=== PATIENT | male | born 1995 | race African-American/Black ===

== ENCOUNTER 2016-11-15 14:20 | Emergency (ER) | payer SELFPAY ==
[~2016-11-15] VITALS: Ht 193 cm; Wt 75.0 kg
[2016-11-15 14:22] VITALS: BP 144/74; PULSE 81; RESP 16; TEMP 97.9; O2SAT 99
[2016-11-15] MEDS ORDERED: MOTR200T4 PO (14:36)
--- NOTE | 2016-11-15 14:36 | PD ---
HPI . Sore throat for 1 day Chief Complaint: ENT Complaint Time Seen by Provider: 14:35 Travel History International Travel<30 days: No Contact w/Intl Traveler<30days: No Traveled to known affect area: No History of Present Illness HPI 21-year-old male with no medical history who recently had tonsillitis on October 27 and treated with amoxicillin here with complaints of recurrent infection. Patient tells me that he developed a sore throat yesterday and he wanted to come in before it got worse. He says he was told last time he was seen that he would need to have tonsillectomy, but has not been able to follow-up with primary care provider or ear nose and throat. He denies any fever or chills. He denies any difficulty swallowing or drooling. He denies any changes in his voice. He has no other complaints. PFSH Past Medical History Medical History: Denies Significant Hx Social History Alcohol Use: No Tobacco Use: No Substance Use: No Allergies-Medications (Allergen,Severity, Reaction): Coded Allergies: No Known Allergies (Unverified , 11/15/16) Reported Meds & Prescriptions Reported Meds & Active Scripts Active Prednisone 50 Mg Tab 50 Mg PO DAILY Augmentin (Amoxicillin-Clavulanate) 875-125 mg Tab 875 Mg PO BID not for use in CrCl <30 ml/min. Reported Motrin Ib (Ibuprofen) 200 Mg Tab 200 Mg PO Q4H PRN Review of Systems General / Constitutional: No: Fever Eyes: No: Visual changes HENT: Positive: Sore Throat, No: Headaches Cardiovascular: No: Chest Pain or Discomfort Respiratory: No: Shortness of Breath Gastrointestinal: No: Abdominal Pain Genitourinary: No: Dysuria Musculoskeletal: No: Pain Skin: No Rash Neurologic: No: Weakness Psychiatric: No: Depression Endocrine: No: Polydipsia Hematologic/Lymphatic: No: Easy Bruising Physical Exam Narrative GENERAL: AAO x 3, no acute distress, Well-nourished, well-developed patient. SKIN: Warm and dry. No visible rashes or bruising. HEAD: Normocephalic and atraumatic. EYES: No scleral icterus. No injection or drainage. EOM intact, PERRLA ENT: No nasal drainage noted. Mucous membranes pink. Airway patent. Mild to moderate posterior pharynx erythema, edema greater on the left than right. No definitive abscess or exudates. Uvula is midline. NECK: Supple, trachea midline. No JVD. Positive cervical chain lymphadenopathy CARDIOVASCULAR: Regular rate and rhythm without murmurs, gallops, or rubs. RESPIRATORY: Breath sounds equal bilaterally. No accessory muscle use. No rhonchi or rales. GASTROINTESTINAL: Abdomen soft, non-tender, nondistended. EXTREMITIES: No cyanosis or edema. BACK: Nontender without obvious deformity. No CVA tenderness. PSYCH: AAO x 3, normal affect. Data Data Last Documented VS Vital Signs Date Time Temp Pulse Resp B/P Pulse Ox O2 Delivery O2 Flow Rate FiO2 11/15/16 14:22 97.9 81 16 144/74 99 MDM Medical Decision Making Medical Screen Exam Complete: Yes Emergency Medical Condition: Yes Medical Record Reviewed: Yes Differential Diagnosis acute pharyngitis, tonsillitis, less likely peritonsillar abscess Narrative Course 21-year-old male with no medical history who recently had tonsillitis on October 27 and treated with amoxicillin here with complaints of recurrent infection. Patient tells me that he developed a sore throat yesterday and he wanted to come in before it got worse. He says he was told last time he was seen that he would need to have tonsillectomy, but has not been able to follow-up with primary care provider or ear nose and throat. He denies any fever or chills. He denies any difficulty swallowing or drooling. He denies any changes in his voice. He has no other complaints. Patient seen and examined. He appears to have acute pharyngitis and possible tonsillitis. He does not have a peritonsillar abscess. The uvula is midline. No muffled voice. I will go ahead and treat him with Augmentin and have provided him some prednisone for discomfort. He will need to establish with a primary care provider for referral to oncology research rn. I agree that he will need to have these tonsils removed. He continues Tylenol and Motrin as needed for pain or fever. I've advised him if his symptoms worsen or he develops any airway issues to call 911. Patient verbalized understanding of instructions, questions were answered, and thanked me for their care. I advised them if their condition worsens, please return to the nearest emergency room for further care. Diagnosis Primary Impression: Acute pharyngitis Qualified Code: J02.9 - Acute pharyngitis, unspecified etiology Additional Impression: Tonsillitis Referrals: Ear / Nose / Throat Specialist Patient Instructions: General Instructions, Pharyngitis (ED), Tonsillitis (ED) Additional Instructions: Please return to emergency department if your symptoms return or worsen. Follow up with your primary care provider. Take medications as prescribed. Take medications as prescribed. Try salt water gargles. Do not share utensils, toothbrush, etc. If you develop difficulty breathing, please go to the nearest emergency room. Med/Other Pt SpecificInfo: Prescription(s) given Scripts Prednisone 50 Mg Tab50 Mg PO DAILY #5 TAB Prov:Sam Gonzalez MD 11/15/16 Amoxicillin-Clavulanate (Augmentin)875-125 mg Gdx070 Mg PO BID #20 TAB not for use in CrCl <30 ml/min. Prov:Sam Gonzalez MD 11/15/16 Disposition: 01 DISCHARGE HOME Condition: Stable Frances Del Valle November 15, 2016 14:36
[2016-11-15] MEDS ORDERED: AUGM875T PO (14:41)
[2016-11-15] MEDS ORDERED: PRED50 PO (14:41)
== END 2016-11-15 15:04 | disposition home or self-care (01) ==
LOC: NEPK 14:20
DX: J03.90 Acute tonsillitis, unspecified (principal)
CPT/HCPCS: 99283